=== PATIENT | female | born 1955 | race Caucasian/White ===

== ENCOUNTER 2018-02-10 14:37 | Emergency (ER) | payer MEDICAID ==
[~2018-02-10] VITALS: Ht 170.2 cm; Wt 63.5 kg
[2018-02-10] MEDS ORDERED: IBUPROFEN 600 MG TABLET PO ONE (14:45)
[2018-02-10] MEDS ORDERED: IBUPROFEN 600 MG TABLET ONE (14:58)
--- NOTE | 2018-02-10 15:34 | NUR ---
called social scientist for pt.
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
--- NOTE | 2018-02-10 17:20 | NUR ---
CORROSION CONTROL TECHNICIAN SPOKE WITH THE PT, THE PT STATED SHE WAS GOING TO SMOKE AND WOULD RETURN FOR THE REFERRALS AND HELP RESOURCES. PTDID NOT RETURN. I QWENT TO LOOK FOR PT OUTSIDE AND DID NOT FIND THE PT.
--- NOTE | 2018-02-10 17:35 | NUR ---
5:35pm: Patient informed ED staff that she was going to step outside of the ED to smoke a cigarette, but patient never returned. Patient eloped and left the community resources behind. SW called the [place] Police Department [phone] and spoke with office Jacob, asking to cancel the police dispatch. Officer Jacob agreed. RADHA Hall informed.
[2018-02-10 17:57] VITALS: BP 147/89
== END 2018-02-10 17:40 | disposition left against medical advice (07) ==
LOC: ER 14:37
DX: S90.112A Contusion of left great toe without damage to nail, initial encounter (principal); F17.200 Nicotine dependence, unspecified, uncomplicated; W18.40XA Slipping, tripping and stumbling without falling, unspecified, initial encounter; Y93.89 Activity, other specified; Y92.89 Other specified places as the place of occurrence of the external cause; Y99.8 Other external cause status
CPT/HCPCS: 73630; A4663

== ENCOUNTER 2020-08-29 11:59 | Inpatient (IN) | payer MEDICARE, OTHER ==
[~2020-08-29] VITALS: Ht 157.5 cm; Wt 58.1 kg
--- NOTE | 2020-08-29 12:10 | NUR ---
Pt BIB [facility] ambulance. Pt is awake and yelling. Poor hygiene, states being hungry.
[2020-08-29] MEDS ORDERED: DICL100G16 TP (12:17)
[2020-08-29] MEDS ORDERED: ALBU18HF2 IH (12:17)
[2020-08-29] MEDS ORDERED: DOCU100C36 PO (12:17)
[2020-08-29] MEDS ORDERED: ACET-2605 PO (12:17)
[2020-08-29] MEDS ORDERED: MIRT30TA7 PO (12:17)
[2020-08-29] MEDS ORDERED: PHEN100C4 PO (12:17)
[2020-08-29] MEDS ORDERED: KETO15CR2 TP (12:17)
[2020-08-29] MEDS ORDERED: QUET100T PO (12:17)
[2020-08-29] MEDS ORDERED: CLOT15CR27 TP (12:17)
[2020-08-29] MEDS ORDERED: GABA-532 PO (12:17)
[2020-08-29] MEDS ORDERED: EFIN4SOL TP (12:17)
--- NOTE | 2020-08-29 12:23 | NUR ---
DR Pederson at the bedside for MSE.
--- NOTE | 2020-08-29 12:27 | NUR ---
Hospital lunch tray provided, "Just leave it there and get out".
--- NOTE | 2020-08-29 12:37 | NUR ---
Pt becomes combative w/ staff, when attempted to draw blood. DR Pederson made aware.
[2020-08-29] MEDS ORDERED: HALOPERIDOL LACTATE 5 MG/1 ML VIAL IM ONE (12:45)
[2020-08-29] MEDS ORDERED: LORAZEPAM 2 MG/1 ML VIAL IM ONE (12:45)
[2020-08-29] MEDS ORDERED: HALOPERIDOL LACTATE 5 MG/1 ML VIAL ONE (12:49)
[2020-08-29] MEDS ORDERED: LORAZEPAM 2 MG/1 ML VIAL ONE (12:50)
--- NOTE | 2020-08-29 13:02 | NUR ---
PT taken to CT by sharan.
--- NOTE | 2020-08-29 13:47 | NUR ---
Pt sleeping and veterinarian laboratory animal care able to draw blood.
[2020-08-29 13:59] LABS: BASOPHILS % (AUTO) 0.4 % (0.0-2.0); HEMATOCRIT 41.8 % (31.2-41.9); HEMOGLOBIN 13.9 g/dL (10.9-14.3); LYMPHOCYTES # (AUTO) 0.3 K/uL (20.0-40.0); LYMPHOCYTES % (AUTO) 8.2 % (20.5-51.5); MEAN CORPUSCULAR HEMOGLOBIN 30.1 uug (24.7-32.8); MEAN CORPUSCULAR HGB CONC 33 g/dL (32.3-35.6); MEAN CORPUSCULAR VOLUME 90.7 fL (75.5-95.3); MONOCYTES # (AUTO) 0.3 K/uL (2.0-10.0); MONOCYTES % (AUTO) 8.1 % (0.0-11.0); NEUTROPHILS # (AUTO) 3.2 K/uL (1.8-8.9); NEUTROPHILS % (AUTO) 83.3 % (38.5-71.5); WHITE BLOOD COUNT (AUTO) 3.8 K/uL (3.8-11.8)
[2020-08-29 14:09] LABS: MAGNESIUM 1.8 mg/dL (1.8-2.4); PHOSPHOROUS 2.7 mg/dL (2.5-4.9)
[2020-08-29 14:12] LABS: ALANINE AMINOTRANSFERASE 48 U/L (14-59); ALKALINE PHOSPHATASE 208 U/L (50-136); ASPARTATE AMINOTRANSFERASE 61 U/L (15-37); BILIRUBIN,DIRECT 0.3 mg/dL (0.0-0.2); BILIRUBIN,TOTAL 0.9 mg/dL (0.2-1.0); CARBON DIOXIDE 26 mmol/L (21-32); CHLORIDE 106 mmol/L (98-107); CREATININE 0.6 mg/dL (0.6-1.3); GLUCOSE 78 mg/dL (74-106); POTASSIUM 3.2 mmol/L (3.5-5.1); TOTAL PROTEIN, SERUM 7.2 g/dL (6.4-8.2); UREA NITROGEN, BLOOD 18 mg/dL (7-18)
[2020-08-29 14:13] LABS: ACETAMINOPHEN < 2.0 ug/mL (10-30)
[2020-08-29 14:37] LABS: THYROID STIMULATING HORMONE 2.002 mIU/mL (0.358-3.740)
[2020-08-29 14:42] LABS: ETHANOL < 3 MG/DL (0-0)
[2020-08-29 15:05] LABS: *BILIRUBIN,URIN NEGATIVE (NEGATIVE); *BLOOD, URINE NEGATIVE (NEGATIVE); *CLARITY,URINE SLIGHTLY CLOUDY (CLEAR); *COLOR,URINE YELLOW (YELLOW); *KETONES,URINE NEGATIVE (NEGATIVE); *UROBILINOGEN,URINE 0.2 E.U./dl (NORMAL); LEUKOCYTE ESTERASE ,URINE NEGATIVE (NEGATIVE); NITRITE, URINE NEGATIVE (NEGATIVE); PH,URINE 5.5 (5.0-8.0); UGLUCOSE NEGATIVE (NEGATIVE)
[2020-08-29 15:15] LABS: *AMPHETAMINE, URINE POSITIVE (NEGATIVE); *CANNABINOID, URINE NEGATIVE (NEGATIVE); *COCCAINE, URINE NEGATIVE (NEGATIVE); *OPIATE, URINE NEGATIVE (NEGATIVE); *PHENCYCLIDINE SCREEN,URINE NEGATIVE (NEGATIVE)
[2020-08-29] MEDS ORDERED: POTASSIUM CHLORIDE 20 MEQ TAB.PRT.SR PO ONE (15:30)
[2020-08-29] MEDS ORDERED: POTASSIUM CHLORIDE 20 MEQ TAB.PRT.SR ONE (15:50)
[2020-08-29] MEDS ORDERED: MAG HYDROX/AL HYDROX/SIMETH 30 ML LIQUID UDC PO PRN (16:15)
[2020-08-29] MEDS ORDERED: MAGNESIUM HYDROXIDE 30 ML LIQUID UDC PO PRN (16:15)
--- NOTE | 2020-08-29 16:35 | NUR ---
Gps/Turning And Beading Machine Operator- Received report from ER Nurse Noam . Patient admitted to the MHU via gurney , asleep in no sign of any distress. Assisted patient to bed 3 staff assisting, r/t not following directions at this time. Patient is poorly groomed, filthy feet/toenails poorly groomed. Patient was bathed in bed completely r/t patient unable to stay up during her bathing. Scabs to her right knee, tattoos to her left forearm. Noted old surgical incision left lateral hip area. Yells and irritable when being repositioned, eyes closed. Unable to to get informations from the patient at this time, min. info. taken from ER records ad previous [facility]osp[facility]. Bed alarm set for safety .
[2020-08-29 16:37] VITALS: BP 108/47
--- NOTE | 2020-08-29 17:37 | NUR ---
Gps/Product Marketing Specialist- Patient remains in bed , monitored safety , bed alarm on.
--- NOTE | 2020-08-29 17:48 | NUR ---
Gps/Cloth Bale Header- Per ER Nurse Louie , K+ 3.2, claimed unable to give potasium 40 meq. ordered in ER r/t patient was asleep.
--- NOTE | 2020-08-29 18:29 | NUR ---
Gps/Attending Psychiatrist- patient remains asleep at this time, unable to get informations, and unable to administer potasium 40 meq. po.
[2020-08-29] MEDS: DOCUSATE SODIUM 100 MG CAPSULE PO SCH (18:30)
[2020-08-29] MEDS ORDERED: ALBUTEROL SULFATE 8 GM HFA.AER.AD IH PRN (18:30)
[2020-08-29] MEDS: PHENYTOIN SODIUM EXTENDED 100 MG CAPSULE.SA PO SCH (18:30)
[2020-08-29] MEDS ORDERED: ALBUTEROL SULFATE 2.5 MG/3 ML NEBU NEB PRN (18:45)
[2020-08-29 18:49] LABS: RBC,URINE 0-3 /HPF (0-3); WBC,URINE 0-3 /HPF (0-3)
[2020-08-29 18:50] LABS: BACTERIA,URINE MANY /HPF (NONE SEEN); SQUAMOUS EPITHELIAL CELL,UR MODERATE /HPF (NONE SEEN)
[2020-08-29 20:08] VITALS: BP 104/51
[2020-08-29 23:14] LABS: PLATELET COUNT (AUTO) 111 K/uL (179-408)
[2020-08-29 23:30] LABS: BAND % (MANUAL) 1 % (0-10); LYMPHOCYTES % (MANUAL) 10 % (20-40); MONOCYTES % (MANUAL) 2 % (2-10); NEUTROPHILS % (MANUAL) 87 % (42-75)
--- NOTE | 2020-08-30 02:55 | NUR ---
RECEIVED PATIENT IN BED SLEEPING. NOT IN DISTRESS AND NO C/O PAIN MADE BY HER.COULD NOT ENGAGE IN ANY MEANINGFUL DIALOGUE.VISUAL CHECKS MADE ON HER FOR SAFETY. WILL CONTINUE TO MONITOR.
--- NOTE | 2020-08-30 06:40 | NUR ---
PATIENT SLEPT FOR 8:30 HOURS.
[2020-08-30 07:30] VITALS: BP 119/47
[2020-08-30] MEDS: PHENYTOIN SODIUM EXTENDED 100 MG CAPSULE.SA PO SCH ×3 (09:00→17:00)
[2020-08-30] MEDS: DOCUSATE SODIUM 100 MG CAPSULE PO SCH ×3 (09:00→17:00)
[2020-08-30] MEDS: NICOTINE 14 MG/24HR PATCH TD SCH (09:01)
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
--- NOTE | 2020-08-30 13:20 | NUR ---
Gps/Production Grip- Awakened for lunch , encouraged to sit up and drinkl her liquids. patient mumbles, speech unclear. Patient dtriwes to follow simple directions but has difficulty sequencing her task, verbal cueing provided. Able to give fluids preferred juices. Incotinenct extra large of urine, diaper was all soaking wet, good genesis-care provided, patient eyes closed while staff in the process of cleaning her. Prompted to take routine am meds., re offerd, was able to take. safety emphasized.
[2020-08-30] MEDS: ACETAMINOPHEN 325 MG TABLET PO PRN (13:38)
[2020-08-30] MEDS ORDERED: LACTULOSE 20 G/30 ML LIQUID UDC PO PRN (15:15)
[2020-08-30] MEDS: risperiDONE-M 0.5 MG TAB.RAPDIS PO SCH (17:00)
[2020-08-30 20:04] VITALS: BP 126/56
[2020-08-30] MEDS: OXCARBAZEPINE 150 MG TABLET PO SCH (20:12)
--- NOTE | 2020-08-30 21:33 | NUR ---
GPS: Pt.refused bedtime med.earlier despite explanation of risks vs.benefits x3. Also refused PNA/Flu vaccine when offered despite explanation of risks vs.benefits x3. Safe environment provided. No increased agitation noted. Re-directed prn.
--- NOTE | 2020-08-31 05:56 | NUR ---
GPS: Pt.slept 6.30 last night. Got up few times to use the toilet. Assisted in the shower earlier. Remains easily irritable,disheveled and with poor insight to present situation. Safe environment provided. Will continue to monitor.
[2020-08-31] MEDS ORDERED: MAGNESIUM HYDROXIDE 30 ML LIQUID UDC PO PRN (08:58)
[2020-08-31] MEDS: risperiDONE-M 0.5 MG TAB.RAPDIS PO SCH ×3 (11:51→17:00)
[2020-08-31] MEDS: OXCARBAZEPINE 150 MG TABLET PO SCH ×3 (11:52→21:44)
[2020-08-31] MEDS: DOCUSATE SODIUM 100 MG CAPSULE PO SCH ×2 (11:52→17:00)
[2020-08-31] MEDS: PHENYTOIN SODIUM EXTENDED 100 MG CAPSULE.SA PO SCH ×3 (11:53→17:00)
[2020-08-31] MEDS: NICOTINE 14 MG/24HR PATCH TD SCH (11:53)
[2020-08-31] MEDS: LACTULOSE 20 G/30 ML LIQUID UDC PO SCH ×2 (13:00→17:00)
[2020-08-31 16:00] VITALS: BP 123/69
--- NOTE | 2020-08-31 16:07 | NUR ---
Gps/Senior Qa Tester Came to the Nurses station, asking for food, claimed she is very hungry, sleeping this pm, did not eat lunch per pt. Re offered routine pm meds. with min. prompting
[2020-08-31 20:17] VITALS: BP 114/59
[2020-09-01 07:30] VITALS: BP 125/65
[2020-09-01] MEDS: OXCARBAZEPINE 150 MG TABLET PO SCH ×3 (08:00→20:04)
[2020-09-01] MEDS: risperiDONE-M 0.5 MG TAB.RAPDIS PO SCH ×3 (08:00→16:25)
--- NOTE | 2020-09-01 08:45 | NUR ---
Gps/Hotel Recreational Facilities Manager- Patient refusing to take all routine am meds. ,cursing staff calling staff names. Reviewed medications , refused to listen, stated" get the f out of here, , i dont need to take any medications " from you ". Patient claimed does not want to be botheed, Will reoffer routine meds at a later time
[2020-09-01] MEDS: PHENYTOIN SODIUM EXTENDED 100 MG CAPSULE.SA PO SCH ×3 (09:00→16:24)
[2020-09-01] MEDS: LACTULOSE 20 G/30 ML LIQUID UDC PO SCH ×3 (09:00→16:23)
[2020-09-01] MEDS: NICOTINE 14 MG/24HR PATCH TD SCH (09:00)
[2020-09-01] MEDS: DOCUSATE SODIUM 100 MG CAPSULE PO SCH ×2 (09:00→16:25)
[2020-09-01 15:09] VITALS: BP 142/80
--- NOTE | 2020-09-01 16:29 | NUR ---
Gps/Construction Project Mgr- Crying wants to get out of here, informed , she needs to be consistently compliant with her routine meds. prescribed.Patient started to yell and calling staff names,threw water cup on the floor.
[2020-09-01 20:11] VITALS: BP 136/71
--- NOTE | 2020-09-02 06:33 | NUR ---
Patient slept for approx. 7 hrs through the night. he is noted labile, easily irritable. continue Isolative and withdrawn. Will continue to monitor.
[2020-09-02 07:30] VITALS: BP 117/50
[2020-09-02] MEDS: OXCARBAZEPINE 150 MG TABLET PO SCH (08:37)
[2020-09-02] MEDS: NICOTINE 14 MG/24HR PATCH TD SCH (08:37)
[2020-09-02] MEDS: DOCUSATE SODIUM 100 MG CAPSULE PO SCH ×2 (08:37→17:05)
[2020-09-02] MEDS: PHENYTOIN SODIUM EXTENDED 100 MG CAPSULE.SA PO SCH ×3 (08:37→17:05)
[2020-09-02] MEDS: risperiDONE-M 0.5 MG TAB.RAPDIS PO SCH ×2 (08:37→17:05)
[2020-09-02] MEDS: LACTULOSE 20 G/30 ML LIQUID UDC PO SCH ×3 (08:41→17:00)
--- NOTE | 2020-09-02 09:08 | NUR ---
Firearms Report: Health Plan Specialist completed and submitted a [employer] firearms report for 5150 grave disability certification. A copy of report has been placed in patient chart.
--- NOTE | 2020-09-02 09:25 | NUR ---
Substance Abuse Intervention: Patient was provided with a brief substance abuse intervention for methamphetamine use and referred to the following substance abuse programs: [facility] Substance Abuse Self-helpline ([phone]); [facility] [address] [place] [address] ([phone]); [facility] [address] [address] ([phone]); [facility] ([phone]); [facility] ([phone]); [facility] ([phone]); [facility] ([phone]).
[2020-09-02] MEDS ORDERED: risperiDONE-M 0.5 MG TAB.RAPDIS PO ONE (09:45)
--- NOTE | 2020-09-02 11:29 | NUR ---
Coordination of Care: This SW sent clinical review for nursing facility placement at [facility]. This SW sent it to Nicole ellis for review ([phone]). This SW sent [facility] psychiatric notes, progress notes, and medication list.
--- NOTE | 2020-09-02 12:00 | NUR ---
Individual Therapy: utility worker roller shop met with patient for brief counseling and assessed for patient's presenting problem mood lability. Patient appeared labile and hyperverbal. Patient was crying while this SW was conducting therapy. Patient was fixated on discharge and was not understanding her mental illness. Patient was uncooperative at this time and asked this SW to leave. SW attempted to provide comfort and education, however, patient refused at this time.
[2020-09-02] MEDS: OXCARBAZEPINE 300 MG TABLET PO SCH ×2 (12:23→20:33)
[2020-09-02] MEDS ORDERED: OXCARBAZEPINE 150 MG TABLET PO SCH (13:00)
--- NOTE | 2020-09-02 14:35 | NUR ---
SNF Contact: This SW received a phone call from Nicole ellis ([phone]) from [facility] who stated they can not accept patient due to behavior issues.
--- NOTE | 2020-09-02 14:36 | NUR ---
SNF Referral: This SW sent referral to Arsh ([phone]) from [facility] for placement. This SW faxed [facility] & P psychiatric notes, progress notes, and medication list.
[2020-09-02 15:10] VITALS: BP 90/50
--- NOTE | 2020-09-02 15:51 | NUR ---
SNF Contact: This SW received a call from [employer] admin ([phone]) from [facility] who stated patient is accepted.
[2020-09-02] MEDS: ACETAMINOPHEN 325 MG TABLET PO PRN (19:33)
[2020-09-02] MEDS: LORAZEPAM 0.5 MG TABLET PO PRN (19:33)
[2020-09-02 20:06] VITALS: BP 117/50
--- NOTE | 2020-09-02 20:33 | NUR ---
refused trileptal 300 mg po HS dose.
--- NOTE | 2020-09-03 02:00 | NUR ---
Individual Therapy: insulation worker met with patient for brief counseling and assessed for patient's presenting problem mood lability. Patient appeared labile and hyperverbal. Patient was uncooperative with this SW at this time. Patient continues to be tearful and requesting food for this SW. SW unable to conduct therapy at this time.
--- NOTE | 2020-09-03 05:19 | NUR ---
GPS: Patient Remain uncooperative with care. patient noted labile, easily irritable. continue Isolative and withdrawn. no agitation noted at this time. Will continue to monitor.
--- NOTE | 2020-09-03 05:55 | NUR ---
Patient slept for approx. 6.30 hrs through the night.
[2020-09-03 08:02] LABS: BILIRUBIN,TOTAL 0.4 mg/dL (0.2-1.0); CREATININE 0.6 mg/dL (0.6-1.3); PHENYTOIN (DILANTIN) 0.9 ug/mL (10.0-20.0); PHOSPHOROUS 3.3 mg/dL (2.5-4.9); POTASSIUM 4.5 mmol/L (3.5-5.1); TOTAL PROTEIN, SERUM 7.7 g/dL (6.4-8.2)
[2020-09-03 08:06] LABS: THYROID STIMULATING HORMONE 1.775 mIU/mL (0.358-3.740)
[2020-09-03 08:10] VITALS: BP 126/66
[2020-09-03] MEDS: OXCARBAZEPINE 300 MG TABLET PO SCH ×3 (08:41→20:12)
[2020-09-03] MEDS: PHENYTOIN SODIUM EXTENDED 100 MG CAPSULE.SA PO SCH ×3 (08:41→17:03)
[2020-09-03] MEDS: LACTULOSE 20 G/30 ML LIQUID UDC PO SCH ×3 (08:42→17:00)
[2020-09-03] MEDS: risperiDONE-M 0.5 MG TAB.RAPDIS PO SCH ×2 (08:42→17:03)
[2020-09-03] MEDS: DOCUSATE SODIUM 100 MG CAPSULE PO SCH ×2 (08:42→17:03)
[2020-09-03] MEDS: NICOTINE 14 MG/24HR PATCH TD SCH (08:43)
--- NOTE | 2020-09-03 11:34 | NUR ---
Court Hearing: Patient's court hearing is today and it was upheld for GD.
--- NOTE | 2020-09-03 13:13 | NUR ---
SW Note: This SW met with patient and discussed discharge planning. Patient was understanding and cooperative with this SW. Patient agreed for this SW to find her a nursing facility. This SW reported that she is accepted at [facility] and she was agreeable with this.
--- NOTE | 2020-09-03 13:24 | NUR ---
Social Work Coordination: Patient will follow up with (Health Care Social Worker) Dr. Clark located at [address] [facility] [address], [place] [address]; ([phone]), however, this SW spoke with Janelle hernandez who stated office is closed until September 15, 2020. Patient will follow up with (psychiatrist) Dr. Jones Franklin located at [address] [place] [address] ([phone]) on September 18 at 9:30AM and was scheduled with chief embalmer Irina. Addendum: 09/03/20 at 1328 by DAVID MARADIAGA Wrong patient
[2020-09-03 16:00] VITALS: BP 113/62
[2020-09-03 20:01] VITALS: BP 110/58
--- NOTE | 2020-09-04 01:10 | NUR ---
RECEIVED PATIENT IN BED SLEEPING. NOT IN DISTRESS AND NO C/O PAIN MADE BY HER.COULD NOT ENGAGE IN ANY MEANINGFUL DIALOGUE.HOWEVER DENIES SI/AH. KEPT WAKING UP AND REQUESTING FOR FOOD.SAME GIVEN. TOOK HER MEDICATIONS. VISUAL CHECKS MADE ON HER FOR SAFETY. WILL CONTINUE TO MONITOR.
--- NOTE | 2020-09-04 06:47 | NUR ---
SHE SLEPT ON AND OFF FOR 6:30 HOURS. UP AND ABOUT.
[2020-09-04 07:30] VITALS: BP 119/66
--- NOTE | 2020-09-04 07:30 | NUR ---
Received patient awake, alert and oriented times 3. No signs of distress noted. Patient is calm and cooperative. Safety precautions are in place. Will continue to monitor.
[2020-09-04] MEDS: NICOTINE 14 MG/24HR PATCH TD SCH ×2 (08:28→09:00)
[2020-09-04] MEDS: OXCARBAZEPINE 300 MG TABLET PO SCH ×3 (08:28→20:34)
[2020-09-04] MEDS: LACTULOSE 20 G/30 ML LIQUID UDC PO SCH ×4 (08:28→16:36)
[2020-09-04] MEDS: PHENYTOIN SODIUM EXTENDED 100 MG CAPSULE.SA PO SCH ×3 (08:28→16:37)
[2020-09-04] MEDS: DOCUSATE SODIUM 100 MG CAPSULE PO SCH ×2 (08:28→16:48)
[2020-09-04] MEDS: risperiDONE-M 0.5 MG TAB.RAPDIS PO SCH ×2 (08:30→16:44)
[2020-09-04] MEDS ORDERED: risperiDONE-M 0.5 MG TAB.RAPDIS PO SCH (13:00)
[2020-09-04 16:00] VITALS: BP 116/68
--- NOTE | 2020-09-04 18:39 | NUR ---
Patient left resting in bed. No sign of distress noted. Patient denies any pain. All medications given as ordered. Patient denies any SI/VASQUEZ. Wound consult ordered for patient's left pinky. Safety precautions are in place. Will endorse to the oncoming nurse
[2020-09-04 20:04] VITALS: BP 108/57
--- NOTE | 2020-09-04 21:32 | NUR ---
Received patient in bed resting. No s/s of acute distress noted at this time. Patient compliant with medications. Denies SI/VASQUEZ. Safety measures and q15 min checks for safety in place.
--- NOTE | 2020-09-05 06:48 | NUR ---
Patient slept 6.45 hours. All needs were met and attended to. Safety measures in place and will endorse to oncoming nurse.
[2020-09-05 07:30] VITALS: BP 119/56
[2020-09-05 08:00] VITALS: BP 117/62
[2020-09-05] MEDS: risperiDONE-M 0.5 MG TAB.RAPDIS PO SCH ×3 (08:19→17:40)
[2020-09-05] MEDS: OXCARBAZEPINE 300 MG TABLET PO SCH ×3 (08:19→17:40)
[2020-09-05] MEDS: NICOTINE 14 MG/24HR PATCH TD SCH (08:20)
[2020-09-05] MEDS: PHENYTOIN SODIUM EXTENDED 100 MG CAPSULE.SA PO SCH ×3 (08:20→17:40)
[2020-09-05] MEDS: DOCUSATE SODIUM 100 MG CAPSULE PO SCH ×2 (08:38→16:55)
[2020-09-05] MEDS: LACTULOSE 20 G/30 ML LIQUID UDC PO SCH ×3 (08:39→16:55)
[2020-09-05] MEDS: LORAZEPAM 0.5 MG TABLET PO PRN ×2 (13:00→19:28)
[2020-09-05] MEDS ORDERED: OLANZAPINE 10 MG VIAL IM ONE (14:00)
--- NOTE | 2020-09-05 14:10 | NUR ---
Patient became agitated and yelling at staff when approached. Patient threw water at staff in the nursing station. Contacted Dr. Savage for orders. Dr. Savage ordered one time dose of Zyprexa 5mg IM. Administered ordered dose. Will continue to monitor patient.
--- NOTE | 2020-09-05 14:18 | NUR ---
Individual Therapy: ironworker apprentice met with patient for brief counseling and assessed for patient's presenting problem mood lability. Patient appeared labile and manic. Patient was tearful and was crying while this SW attempted to conduct therapy. Patient was yelling "I want to get out of here". Patient was verbally abusive towards this SW. This SW was unable to conduct therapy at this time.
[2020-09-05 16:37] VITALS: BP 100/48
[2020-09-05 20:00] VITALS: BP 117/62
[2020-09-06 07:30] VITALS: BP 136/64
[2020-09-06] MEDS: OXCARBAZEPINE 300 MG TABLET PO SCH ×3 (08:42→17:15)
[2020-09-06] MEDS: PHENYTOIN SODIUM EXTENDED 100 MG CAPSULE.SA PO SCH ×3 (08:43→17:14)
[2020-09-06] MEDS: DOCUSATE SODIUM 100 MG CAPSULE PO SCH ×2 (08:43→17:00)
[2020-09-06] MEDS: NICOTINE 14 MG/24HR PATCH TD SCH (08:43)
[2020-09-06] MEDS: risperiDONE-M 0.5 MG TAB.RAPDIS PO SCH ×3 (08:46→17:15)
[2020-09-06] MEDS: LACTULOSE 20 G/30 ML LIQUID UDC PO SCH ×3 (09:00→17:00)
--- NOTE | 2020-09-06 14:55 | NUR ---
Individual Therapy: ditch worker met with patient for brief counseling and assessed for patient's presenting problem mood lability. Patient was asleep. Patient did not want to speak to this SW at this time. SW unable to conduct therapy at this time.
[2020-09-06 15:23] VITALS: BP 95/50
[2020-09-06 20:45] VITALS: BP 118/98
--- NOTE | 2020-09-07 06:10 | NUR ---
GPS: Remain calm and cooperative with medications and care. slept 9 hrs through the night. no agitation noted at this time. continue plan of care.
[2020-09-07 07:30] VITALS: BP 115/53
[2020-09-07] MEDS: risperiDONE-M 0.5 MG TAB.RAPDIS PO SCH ×3 (08:15→16:02)
[2020-09-07] MEDS: OXCARBAZEPINE 300 MG TABLET PO SCH ×3 (08:15→16:02)
[2020-09-07] MEDS: PHENYTOIN SODIUM EXTENDED 100 MG CAPSULE.SA PO SCH ×3 (08:16→16:07)
[2020-09-07] MEDS: DOCUSATE SODIUM 100 MG CAPSULE PO SCH ×2 (08:16→16:02)
[2020-09-07] MEDS: LACTULOSE 20 G/30 ML LIQUID UDC PO SCH ×3 (08:16→16:06)
[2020-09-07] MEDS: NICOTINE 14 MG/24HR PATCH TD SCH (08:16)
[2020-09-07 16:00] VITALS: BP 107/48
--- NOTE | 2020-09-07 18:03 | NUR ---
RECEIVED PATIENT ALERT ORIENTED X4,CALM COOPERATIVE, PATIENT COMPLIANT WITH MEDICATION, DENIES SI AND HI, REDIRECTABLE, PATIENT WAS ON [id number] FOR SAFETY , NO SIGN OF ANY DISTRESS
[2020-09-07 20:00] VITALS: BP 99/53
--- NOTE | 2020-09-08 01:00 | NUR ---
PATIENT SEEN BY DR RUBY WITH ORDER TO INCREASE HER HOLD UP TO 14 DAYS, HOLD TILL 09/14/2020.
--- NOTE | 2020-09-08 04:48 | NUR ---
PATIENT ALERT ORIENTED, NO COMPLAIN OF PAIN, PATIENT SLEPT AND STAYED ON HER ROOM MOST OF THE NIGHT. PATIENT HAS EPISODE OF MULTIPLE REQUEST FOR SNACK FOOD. PATIENT HAS NO BEHAVIORAL PROBLEM NOTED AT THIS TIME. CONT TO MONITOR.
[2020-09-08 07:30] VITALS: BP 110/59
--- NOTE | 2020-09-08 07:30 | NUR ---
Patient received resting in bed awake, alert and oriented times 3. Patient denies any pain, SI or VASQUEZ. Patient calm and cooperative at this time. safety precautions are in place. Will continue to monitor.
[2020-09-08] MEDS: DOCUSATE SODIUM 100 MG CAPSULE PO SCH ×2 (08:32→16:36)
[2020-09-08] MEDS: OXCARBAZEPINE 300 MG TABLET PO SCH ×3 (08:32→16:36)
[2020-09-08] MEDS: risperiDONE-M 0.5 MG TAB.RAPDIS PO SCH ×3 (08:32→16:37)
[2020-09-08] MEDS: PHENYTOIN SODIUM EXTENDED 100 MG CAPSULE.SA PO SCH ×3 (08:32→16:36)
[2020-09-08] MEDS: LACTULOSE 20 G/30 ML LIQUID UDC PO SCH ×3 (08:47→16:37)
[2020-09-08] MEDS: NICOTINE 14 MG/24HR PATCH TD SCH (08:47)
[2020-09-08 16:00] VITALS: BP 111/55
--- NOTE | 2020-09-08 18:28 | NUR ---
Patient left resting in bed. No sign of distress noted. gave all medications as ordered. Patient denies any SI/VASQUEZ. safety precautions implemented. Will endorse to the oncoming nurse.
[2020-09-08 20:07] VITALS: BP 112/54
[2020-09-09] MEDS: TEMAZEPAM 7.5 MG CAPSULE PO PRN (01:39)
--- NOTE | 2020-09-09 06:50 | NUR ---
PT SLEPT 6 H. PT IN NO ACUTE DISTRESS. PT GIVEN RESTORIL PRN AT 0139H. PT TOLERATED IT WELL. PT KEEP ASKING FOR FOOD. SETTING LIMIT DONE. SAFETY AND COMFORT PROVIDED. WILL ENDORSE TO INCOMING NURSE FOR CONTINUITY OF CARE.
[2020-09-09 07:30] VITALS: BP 133/56
[2020-09-09] MEDS: risperiDONE-M 0.5 MG TAB.RAPDIS PO SCH ×3 (08:10→16:33)
[2020-09-09] MEDS: OXCARBAZEPINE 300 MG TABLET PO SCH ×3 (08:10→16:33)
[2020-09-09] MEDS: PHENYTOIN SODIUM EXTENDED 100 MG CAPSULE.SA PO SCH ×3 (08:10→16:33)
[2020-09-09] MEDS: DOCUSATE SODIUM 100 MG CAPSULE PO SCH ×2 (08:24→16:33)
[2020-09-09] MEDS: LACTULOSE 20 G/30 ML LIQUID UDC PO SCH ×3 (08:24→16:33)
[2020-09-09] MEDS: NICOTINE 14 MG/24HR PATCH TD SCH (08:24)
[2020-09-09 11:15] LABS: BASOPHILS % (AUTO) 0.5 % (0.0-2.0); HEMATOCRIT 35.5 % (31.2-41.9); HEMOGLOBIN 11.8 g/dL (10.9-14.3); LYMPHOCYTES # (AUTO) 0.4 K/uL (20.0-40.0); LYMPHOCYTES % (AUTO) 23.2 % (20.5-51.5); MEAN CORPUSCULAR HEMOGLOBIN 30.6 uug (24.7-32.8); MEAN CORPUSCULAR HGB CONC 33 g/dL (32.3-35.6); MEAN CORPUSCULAR VOLUME 91.8 fL (75.5-95.3); MONOCYTES # (AUTO) 0.3 K/uL (2.0-10.0); NEUTROPHILS # (AUTO) 1.2 K/uL (1.8-8.9); NEUTROPHILS % (AUTO) 61.3 % (38.5-71.5); PLATELET COUNT (AUTO) 82 K/uL (179-408); RED BLOOD CELL COUNT(AUTO) 3.87 MIL/uL (3.63-4.92)
[2020-09-09 11:35] LABS: BILIRUBIN,TOTAL 0.2 mg/dL (0.2-1.0); CREATININE 0.8 mg/dL (0.6-1.3); POTASSIUM 3.8 mmol/L (3.5-5.1); TOTAL PROTEIN, SERUM 6.8 g/dL (6.4-8.2)
[2020-09-09 11:43] LABS: WHITE BLOOD COUNT (AUTO) 1.9 K/uL (3.8-11.8)
--- NOTE | 2020-09-09 14:51 | NUR ---
Individual Therapy: maintenance and repair worker met with patient for brief counseling and assessed for patient's presenting problem mood lability. Patient was asleep and did not want to be interrupted. Patient stated she wants to sleep. This SW unable to conduct therapy at this time.
[2020-09-09 14:54] VITALS: BP 90/48
[2020-09-09 15:17] LABS: BLASTS, MANUAL % 2 % (0-0); LYMPHOCYTES % (MANUAL) 26 % (20-40); MONOCYTES % (MANUAL) 15 % (2-10); NEUTROPHILS % (MANUAL) 57 % (42-75)
--- NOTE | 2020-09-09 15:17 | NUR ---
patient is alert and oriented. patient is cooperative, redirectable, but is anxious, needy, guarded and withdrawn to her room. patient is unkempt and disheveled. she has appropriate interaction with peers and staff. patient is adherent with medication, no adverse reaction noted. patient denies SI/HI, denies AH/Vh. encouraged to participate in the unit therapeutic milieu. patient is able to perform self care and ADL's independently.
[2020-09-09 20:00] VITALS: BP 100/53
--- NOTE | 2020-09-10 06:46 | NUR ---
PATIENT ALERT ORIENTED, NO COMPLAIN OF PAIN. PATIENT COOPERATIVE WITH CARE. CONT TO MONITOR.
[2020-09-10 07:26] LABS: BASOPHILS % (AUTO) 0.4 % (0.0-2.0); HEMATOCRIT 36.4 % (31.2-41.9); HEMOGLOBIN 12.1 g/dL (10.9-14.3); LYMPHOCYTES # (AUTO) 0.4 K/uL (20.0-40.0); LYMPHOCYTES % (AUTO) 19.1 % (20.5-51.5); MEAN CORPUSCULAR HEMOGLOBIN 30.9 uug (24.7-32.8); MEAN CORPUSCULAR HGB CONC 33 g/dL (32.3-35.6); MEAN CORPUSCULAR VOLUME 92.5 fL (75.5-95.3); MONOCYTES # (AUTO) 0.3 K/uL (2.0-10.0); MONOCYTES % (AUTO) 13.5 % (0.0-11.0); NEUTROPHILS # (AUTO) 1.5 K/uL (1.8-8.9); PLATELET COUNT (AUTO) 90 K/uL (179-408); RED BLOOD CELL COUNT(AUTO) 3.93 MIL/uL (3.63-4.92); WHITE BLOOD COUNT (AUTO) 2.3 K/uL (3.8-11.8)
[2020-09-10 07:30] VITALS: BP 99/40
[2020-09-10 07:39] LABS: CREATININE 0.7 mg/dL (0.6-1.3)
[2020-09-10 08:00] LABS: BILIRUBIN,TOTAL 0.3 mg/dL (0.2-1.0); TOTAL PROTEIN, SERUM 6.9 g/dL (6.4-8.2)
[2020-09-10] MEDS ORDERED: OXCARBAZEPINE 300 MG TABLET PO SCH (08:00)
[2020-09-10] MEDS: risperiDONE-M 0.5 MG TAB.RAPDIS PO SCH ×3 (08:39→17:20)
[2020-09-10] MEDS: DOCUSATE SODIUM 100 MG CAPSULE PO SCH ×2 (08:40→17:20)
[2020-09-10] MEDS: NICOTINE 14 MG/24HR PATCH TD SCH ×2 (08:40→08:50)
[2020-09-10] MEDS: LACTULOSE 20 G/30 ML LIQUID UDC PO SCH ×4 (08:40→12:16)
[2020-09-10] MEDS: PHENYTOIN SODIUM EXTENDED 100 MG CAPSULE.SA PO SCH ×3 (08:40→17:21)
[2020-09-10] MEDS: LITHIUM CARBONATE 150 MG CAPSULE PO SCH ×2 (11:41→17:21)
[2020-09-10 14:38] LABS: LYMPHOCYTES % (MANUAL) 20 % (20-40); MONOCYTES % (MANUAL) 10 % (2-10); NEUTROPHILS % (MANUAL) 70 % (42-75)
[2020-09-10] MEDS: OXCARBAZEPINE 150 MG TABLET PO SCH (17:20)
--- NOTE | 2020-09-10 18:07 | NUR ---
EOSS: Pt in assigned room in bed, alert, able to verbalize needs throughout shift. No acute distress noted. Pt remained cooperative but needy and guarded. Due medications given per order, no a/r noted. Redirection and reassurance provided PRN. Pt continues to deny SI/HI/AH/VH. Pt seen interacting appropriately with peers and staff. Encouraged pt to participate in group, pt declined. Pt able to perform self care independently and ambulate safely. Will endorse care to director life sales nurse.
[2020-09-10 20:14] VITALS: BP 102/44
[2020-09-10] MEDS ORDERED: MEMANTINE HCL 5 MG TABLET PO SCH (21:00)
[2020-09-10] MEDS: TEMAZEPAM 7.5 MG CAPSULE PO PRN (21:42)
--- NOTE | 2020-09-11 06:43 | NUR ---
Shift End Report: Patient very cooperative, compliant to treatment/medications. No suicidal ideation, no seizure activities. Slept 3.15 hours only. VS stable. Continue care as planned.
--- NOTE | 2020-09-11 07:22 | NUR ---
Received change of shift report from RADHA Regan. All questions, comments and concerns were addressed. Patient received resting quietly in her assigned bed. Respirations are even and unlabored, no signs of acute respiratory distress noted. Bed is in low and locked position.
[2020-09-11 07:30] VITALS: BP_SYST 132; BP_SYST 141; BP_DIAS 58; BP_DIAS 90
[2020-09-11] MEDS: DOCUSATE SODIUM 100 MG CAPSULE PO SCH ×2 (08:18→17:00)
[2020-09-11] MEDS: PHENYTOIN SODIUM EXTENDED 100 MG CAPSULE.SA PO SCH ×3 (08:18→17:48)
[2020-09-11] MEDS: NICOTINE 14 MG/24HR PATCH TD SCH (08:18)
[2020-09-11] MEDS: OXCARBAZEPINE 150 MG TABLET PO SCH (08:18)
[2020-09-11] MEDS: risperiDONE-M 0.5 MG TAB.RAPDIS PO SCH ×3 (08:18→17:48)
[2020-09-11] MEDS: LITHIUM CARBONATE 150 MG CAPSULE PO SCH ×2 (08:18→17:48)
--- NOTE | 2020-09-11 14:21 | NUR ---
Individual Therapy: developmental services worker met with patient for brief counseling and assessed for patient's presenting problem mood lability. Patient presented with euthymic mood. Patient appeared happier and stated she is excited for her discharge and is looking forward to it. Patient stated she has compliant with her treatment. This SW actively listened to patient and provided emotional support.
[2020-09-11 16:00] VITALS: BP 107/68
--- NOTE | 2020-09-11 18:50 | NUR ---
patient is alert and oriented x4. patient is cooperative and redirectable. she is anxious and restless. patient is unkempt and disheveled in donated clothing. she has appropriate interaction with peers and staff. patient is adherent with medication, no adverse reaction noted. patient denies SI/HI, denies AH/Vh. encouraged to participate in the unit therapeutic milieu. patient is able to perform self care and ADL's independently. patient provided with education about impulse control.
[2020-09-11] MEDS: MEMANTINE HCL 5 MG TABLET PO SCH (20:05)
[2020-09-11 20:12] VITALS: BP 104/56
--- NOTE | 2020-09-12 06:25 | NUR ---
Shift End Report: Slept 6.15 hours. No complaint presented. No suicidal thoughts, Cooperative with care. No significant event reported all night. Continue care as planned.
[2020-09-12 07:30] VITALS: BP 104/58
[2020-09-12 07:38] LABS: BASOPHILS % (AUTO) 0.3 % (0.0-2.0); HEMATOCRIT 38.1 % (31.2-41.9); HEMOGLOBIN 12.4 g/dL (10.9-14.3); LYMPHOCYTES # (AUTO) 0.5 K/uL (20.0-40.0); MEAN CORPUSCULAR HEMOGLOBIN 29.9 uug (24.7-32.8); MEAN CORPUSCULAR HGB CONC 33 g/dL (32.3-35.6); MEAN CORPUSCULAR VOLUME 92.1 fL (75.5-95.3); MONOCYTES # (AUTO) 0.4 K/uL (2.0-10.0); MONOCYTES % (AUTO) 12.9 % (0.0-11.0); NEUTROPHILS % (AUTO) 68.8 % (38.5-71.5); PLATELET COUNT (AUTO) 93 K/uL (179-408); RED BLOOD CELL COUNT(AUTO) 4.14 MIL/uL (3.63-4.92)
[2020-09-12 07:39] LABS: BILIRUBIN,TOTAL 0.3 mg/dL (0.2-1.0); CREATININE 0.7 mg/dL (0.6-1.3); POTASSIUM 4.1 mmol/L (3.5-5.1); TOTAL PROTEIN, SERUM 6.8 g/dL (6.4-8.2)
[2020-09-12] MEDS: NICOTINE 14 MG/24HR PATCH TD SCH (09:00)
[2020-09-12] MEDS: DOCUSATE SODIUM 100 MG CAPSULE PO SCH ×2 (09:00→16:59)
[2020-09-12] MEDS: risperiDONE-M 0.5 MG TAB.RAPDIS PO SCH ×3 (09:01→16:58)
[2020-09-12] MEDS: MEMANTINE HCL 5 MG TABLET PO SCH ×2 (09:01→20:09)
[2020-09-12] MEDS: LITHIUM CARBONATE 150 MG CAPSULE PO SCH ×2 (09:02→17:01)
[2020-09-12] MEDS: PHENYTOIN SODIUM EXTENDED 100 MG CAPSULE.SA PO SCH ×3 (09:02→16:59)
--- NOTE | 2020-09-12 14:28 | NUR ---
SW Note: This SW revisited with patient in regards to her discharge plan. This SW [facility] Patient was agreeable with this plan.
[2020-09-12 16:00] VITALS: BP 109/52
[2020-09-12] MEDS: LORAZEPAM 0.5 MG TABLET PO PRN (16:58)
--- NOTE | 2020-09-12 17:31 | NUR ---
RECEIVED PATIENT AOX3-4 CALM COOPERATIVE, DENIES SI AND HI, PATIENT ASSITED WITH ADLS, ON MONITORING FOR SAFETY, AT AROUND 1700, PATIENT CALLED ATTENTION REGARDING HER HITTING THE DOOR IN HER ROOM, PATIENT REFUSED PAIN MEDICATION BUT ASKED FOR ATIVAN, COLD COMPRESS WAS DONE, CALLED AND SPOKE WITH DR. CHAVES , XRAY ORDER AT RIGHT TOE WAS DONE, CALLED AND INFORMED ENGINEERING TO CHECK ON THE DOOR, WILL CONTINUE MONITOR
[2020-09-12 18:23] LABS: BAND % (MANUAL) 1 % (0-10); LYMPHOCYTES % (MANUAL) 22 % (20-40); MONOCYTES % (MANUAL) 7 % (2-10); NEUTROPHILS % (MANUAL) 70 % (42-75)
--- NOTE | 2020-09-12 18:31 | NUR ---
patient ate dinner , went to sleep, no sign of any distress at this time
[2020-09-12 20:22] VITALS: BP 110/54
--- NOTE | 2020-09-13 05:48 | NUR ---
GPS: Remain calm and cooperative with meds and care. Slept 5.30 hours. No complaint presented. No suicidal thoughts, resting in bed comfortably. No significant event reported all night. Continue care as planned.
[2020-09-13 07:30] VITALS: BP 115/63
--- NOTE | 2020-09-13 08:20 | NUR ---
Discharge Note: Patient will be discharged to senior care facility, [facility] [place] [address]; ) via ambulance transportation at 1PM. Golf Course Manager spoke with Arsh Industrial Engineering Professor at [facility]; ([phone]), who stated patient will be accepted today. Patient does not have any family members. Patient is alert and oriented x3 and is unable to plan for self-care. Patient denies any suicidal or homicidal ideation. Patient is aware and agreeable with discharge plans. Patient denies visual/auditory hallucination. Patient will follow up with (psychiatrist) Dr. Savage and (hose coupling joiner) Dr. Ruano. Patient was provided referrals to the following substance abuse programs for methamphetamine and substance abuse: [facility] Substance Abuse Self-helpline ([phone]); [facility] [address] [place] [address] ([phone]); [facility] [address] [place] [address] ([phone]); [facility] ([phone]); [facility] ([phone]); [facility] ([phone]); [facility] ([phone]). Patient signed the homeless waiver upon discharge and a copy was placed in the chart. Homeless resources were provided and include [address] information line for shelters and homeless resources. A copy of all resources given to patient was also placed in the chart. Patient presented with euthymic mood and congruent affect.
[2020-09-13] MEDS: MEMANTINE HCL 5 MG TABLET PO SCH (08:24)
[2020-09-13] MEDS: risperiDONE-M 0.5 MG TAB.RAPDIS PO SCH ×2 (08:24→13:00)
[2020-09-13] MEDS: DOCUSATE SODIUM 100 MG CAPSULE PO SCH (08:25)
[2020-09-13] MEDS: PHENYTOIN SODIUM EXTENDED 100 MG CAPSULE.SA PO SCH ×2 (08:25→13:00)
[2020-09-13] MEDS: LITHIUM CARBONATE 150 MG CAPSULE PO SCH (08:25)
[2020-09-13] MEDS: NICOTINE 14 MG/24HR PATCH TD SCH (08:29)
--- NOTE | 2020-09-13 14:59 | NUR ---
DISCHARGE NOTES, PATIENT CALM COOPERATIVE, WAS PICKED UP BY [facility] GOING [facility] , PATIENT VS WNL, DENIES SI AND HI, NO SIGN OF ANY DISTRESS, BVERBALIZES THAT SHE WILL SEND [facility] ,
== END 2020-09-13 15:02 | DRG 885 ==
LOC: ER 11:59 → GPS 16:04
PROVIDERS: ADMIT Psychiatry & Neurology Psychosomatic Medicine; ATTEND Nurse Practitioner Family
DX: F29 Unspecified psychosis not due to a substance or known physiological condition (principal); E87.6 Hypokalemia; F25.9 Schizoaffective disorder, unspecified; Z20.822 Contact with and (suspected) exposure to COVID-19; D69.6 Thrombocytopenia, unspecified; R74.01 Elevation of levels of liver transaminase levels; D72.819 Decreased white blood cell count, unspecified; Z86.19 Personal history of other infectious and parasitic diseases; R56.9 Unspecified convulsions; Z87.891 Personal history of nicotine dependence; Z91.19 Patient's noncompliance with other medical treatment and regimen; F15.90 Other stimulant use, unspecified, uncomplicated; Z90.49 Acquired absence of other specified parts of digestive tract; K74.60 Unspecified cirrhosis of liver; Z59.0 Homelessness
CPT/HCPCS: 36415; 70030-TC; 70450; 71045; 73660; 83690; 83735; 84100; 84443; 85025; 87086; 93005; A4663; C1758; G0480; J1630; J2060; J2358